=== PATIENT | male | born 1980 | race Caucasian/White ===

== ENCOUNTER 2021-04-29 15:37 | Emergency (ER) | payer SELFPAY ==
[~2021-04-29] VITALS: Ht 180.3 cm; Wt 90.7 kg
--- NOTE | 2021-04-29 15:37 | NUR ---
BROUGHT BACK TO BED #1 AND TRIAGED. REPORT GIVEN TO RUTH
[2021-04-29 15:40] VITALS: BP_SYST 159
--- NOTE | 2021-04-29 15:45 | NUR ---
PT CAME IN FROM HOME C/O DIZZINESS WHEN STANDING AND A WARM SENSATION TO BILATERAL ANKLES AND FEET STARTING EARLIER TODAY. PT REPORTS THAT YESTERDAY HE RELAPSED ON METHAMPHETAMINE YESTERDAY. STATES HE SNORTED SEVERAL LINES AND DIDN'T SLEEP LAST NIGHT. PT IS AMBULATORY, AAOX4, VSS
--- NOTE | 2021-04-29 16:28 | NUR ---
Patient left without being seen.
[2021-04-29 16:29] VITALS: BP_SYST 159
== END 2021-04-29 16:28 | disposition left against medical advice (07) ==
LOC: SED 15:37
DX: R42 Dizziness and giddiness (principal); Z53.21 Procedure and treatment not carried out due to patient leaving prior to being seen by health care provider

== ENCOUNTER 2022-05-08 21:55 | Emergency (ER) | payer SELFPAY ==
[~2022-05-08] VITALS: Ht 177.8 cm; Wt 83.9 kg
--- NOTE | 2022-05-08 22:18 | NUR ---
Patient triaged and placed in ED RM 07. VSS and patient appears in no acute distress at this time. MD Cotto notified of need for MSE.
--- NOTE | 2022-05-08 22:19 | NUR ---
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 To gown for exam. Side rails up. Report given to LILIA Hassan .
--- NOTE | 2022-05-08 22:20 | NUR ---
MD LASSITER AT BEDSIDE EXAMINING PT.
[2022-05-08 22:24] VITALS: BP_SYST 150
[2022-05-08] MEDS ORDERED: HALOPERIDOL LACTATE 5 MG/ML VIAL IM ONE (22:30)
[2022-05-08] MEDS ORDERED: DIPHENHYDRAMINE INJ 50 MG/ML VIAL IM ONE (22:30)
[2022-05-08] MEDS ORDERED: LORazepam 2 MG/ML VIAL IM ONE (22:30)
--- NOTE | 2022-05-08 22:30 | NUR ---
PT MEDICATED ORDERED; TOLERATED WELL.
[2022-05-09 05:00] VITALS: BP_SYST 124
--- NOTE | 2022-05-09 05:05 | NUR ---
Patient given written and verbal discharge instructions and verbalizes understanding. ER MD Cotto discussed with patient the results and treatment provided. Patient in stable condition. ID arm band removed. Patient educated on pain management and to follow up with PMD.
== END 2022-05-09 05:04 | disposition home or self-care (01) ==
LOC: SED 21:55
DX: F15.129 Other stimulant abuse with intoxication, unspecified (principal); F41.9 Anxiety disorder, unspecified; R00.2 Palpitations; F12.90 Cannabis use, unspecified, uncomplicated; Z79.899 Other long term (current) drug therapy
CPT/HCPCS: 99284; 96372; J1200; J1630; J2060